=== PATIENT | female | born 1970 | race Caucasian/White ===

== ENCOUNTER 2018-01-03 17:30 | Emergency (ER) | payer OTHER ==
[~2018-01-03] VITALS: Ht 167.6 cm; Wt 127.5 kg
[~2018-01-03 17:30] MED LIST: CARDIZEM CD240 MG; CARDIZEM120 MG; FLAGYL500MG PO; LASIX20 MG
[2018-01-03] MEDS ORDERED: GLEEVEC400 MG (18:03)
[2018-01-03] MEDS ORDERED: LASIX20 MG (18:04)
[2018-01-03] MEDS ORDERED: VERAPAMIL ER240 MG (18:04)
== END 2018-01-04 00:45 | disposition home or self-care (01) ==
LOC: ER 17:30
DX: J45.998 Other asthma (principal)

== ENCOUNTER 2018-04-28 10:33 | Outpatient (CLI) | payer OTHER | END 2018-04-28 10:42 | disposition home or self-care (01) | LOC: MAMO-SONO 10:33 | DX: Z12.31 Encounter for screening mammogram for malignant neoplasm of breast (principal); N64.89 Other specified disorders of breast; E03.8 Other specified hypothyroidism; E06.3 Autoimmune thyroiditis; C92.10 Chronic myeloid leukemia, BCR/ABL-positive, not having achieved remission; I10 Essential (primary) hypertension; E66.01 Morbid (severe) obesity due to excess calories; K82.8 Other specified diseases of gallbladder ==

== ENCOUNTER → 2018-04-28 | Outpatient (CLI) | payer OTHER ==
[~2018-04-28] MED LIST changes: +GLEEVEC400 MG; +VERAPAMIL ER240 MG
== END | disposition home or self-care (01) ==
LOC: LAB 09:10
DX: C92.10 Chronic myeloid leukemia, BCR/ABL-positive, not having achieved remission (principal); I10 Essential (primary) hypertension; E66.01 Morbid (severe) obesity due to excess calories; K82.8 Other specified diseases of gallbladder; D50.8 Other iron deficiency anemias; D51.8 Other vitamin B12 deficiency anemias; K90.89 Other intestinal malabsorption; D51.1 Vitamin B12 deficiency anemia due to selective vitamin B12 malabsorption with proteinuria; D51.0 Vitamin B12 deficiency anemia due to intrinsic factor deficiency; R19.5 Other fecal abnormalities; E03.8 Other specified hypothyroidism; E06.3 Autoimmune thyroiditis; R97.0 Elevated carcinoembryonic antigen [CEA]

== ENCOUNTER → 2018-06-30 10:41 | Outpatient (CLI) | payer OTHER | END | disposition home or self-care (01) | LOC: LAB 10:41 | DX: N91.2 Amenorrhea, unspecified (principal); O92.6 Galactorrhea; N91.5 Oligomenorrhea, unspecified; N92.1 Excessive and frequent menstruation with irregular cycle; E55.9 Vitamin D deficiency, unspecified; E66.01 Morbid (severe) obesity due to excess calories ==

== ENCOUNTER 2018-11-25 19:58 | Emergency (ER) | payer OTHER ==
[~2018-11-25] VITALS: Ht 157.5 cm; Wt 99.8 kg
[2018-11-26] MEDS ORDERED: PHENERGAN25 MG PO (02:27)
[2018-11-26] MEDS ORDERED: BUTALB-ACETAMI1 EACH PO (02:27)
[2018-11-26] MEDS ORDERED: INTESTINEX680 M1 PO (02:27)
[2018-11-26] MEDS ORDERED: PEPCID AC20 MG PO (02:27)
== END 2018-11-26 02:54 | disposition home or self-care (01) ==
LOC: ER 19:58
DX: K29.70 Gastritis, unspecified, without bleeding (principal)

== ENCOUNTER 2019-01-09 12:54 | Outpatient (CLI) | payer OTHER ==
[~2019-01-09 12:54] MED LIST changes: +BUTALB-ACETAMI1 EACH PO; +INTESTINEX680 M1 PO; +PEPCID AC20 MG PO; +PHENERGAN25 MG PO
[2019-01-10] MEDS ORDERED: TUSSIONEX PENN115 ML PO (11:32)
== END 2019-01-09 13:08 | disposition home or self-care (01) ==
LOC: LAB 12:54
DX: J11.1 Influenza due to unidentified influenza virus with other respiratory manifestations (principal); J20.8 Acute bronchitis due to other specified organisms; C93.11 Chronic myelomonocytic leukemia, in remission

== ENCOUNTER 2019-01-10 09:53 | Emergency (ER) | payer OTHER ==
[~2019-01-10] VITALS: Ht 167.6 cm; Wt 127.9 kg
[2019-01-10] MEDS ORDERED: TUSSIONEX PENN115 ML PO (11:32)
== END 2019-01-10 11:42 | disposition home or self-care (01) ==
LOC: ER 09:53
DX: B96.0 Mycoplasma pneumoniae [M. pneumoniae] as the cause of diseases classified elsewhere (principal)

== ENCOUNTER 2019-01-14 18:43 | Inpatient (IN) | payer OTHER ==
[~2019-01-14] VITALS: Ht 167.6 cm; Wt 127.9 kg
[~2019-01-14 18:43] MED LIST changes: +TUSSIONEX PENN115 ML PO
--- NOTE | 2019-01-14 18:53 | NUR ---
PTE REFIERE QUE TIENE INFECCION DE ORINA DE VARIOS SOMMERS, PTE DESDE KARLEY SIENTE PRESION EN EL BAJO VIENTRE. PTE CON DX DE LEUCEMIA.
--- NOTE | 2019-01-14 21:59 | NUR ---
PTE EVALUADO POR EL DR EBER LEIVAIEN [place]. MS K THOMASON ORIENTA SOBRE EL MISMO, LO CUAL REFIERE ENTENDER, REALIZA PRUEBAS DE LABORATORIO Y ADMINISTRA MEDICAMENTO MARCIAL ORDEN MEDICA Y SIGUIENDO MEDIDAS ASEPTICAS.
--- NOTE | 2019-01-14 23:42 | NUR ---
PT ALERTA Y ORIENTADA X3 ESFERAS EN COMPANIA DE FAMILIAR. SE RECIBE EN CAMA CON BARANDAS ELEVADAS Y FRENOS COLOCADOS. HEPARIN LOCK E IVLFUIDS PATENTES. AISLADA POR PRECAUCION EN CUBICULO 14. PT [place]. SE MANTIENE BAJO OBSERVACION POR CAMBIOS EN IFRAH, TRANQUILA Y SIN DIFICULTAD RESPIRATORIA.
[2019-01-18] MEDS ORDERED: BUDESONIDE1 MG/2 ML IH (15:37)
[2019-01-18] MEDS ORDERED: LEVALBUTER1.25 MG/3 IH (15:38)
[2019-01-18] MEDS ORDERED: MOXIFLOXACIN H400 MG PO (15:38)
[2019-01-18] MEDS ORDERED: ONDANSETRON HCL8 MG PO (15:39)
[2019-01-18] MEDS ORDERED: TUSNEL CAPLET1 EACH PO (15:39)
[2019-01-21] MEDS ORDERED: MOXIFLOXACIN H400 MG PO (13:50)
== END 2019-01-21 17:52 | disposition home or self-care (01) | DRG 660 ==
LOC: ER 18:43 → SURH 01-15 07:31 → MEDI 01-15 07:31
PROVIDERS: Urology; ADMIT Student in an Organized Health Care Education/Training Program
PROC: 3E0F7GC Introduction of Other Therapeutic Substance into Respiratory Tract, Via Natural or Artificial Opening (ICD-10-PCS; 2019-01-16)
PROC: 0TC78ZZ Extirpation of Matter from Left Ureter, Via Natural or Artificial Opening Endoscopic (ICD-10-PCS; 2019-01-17)
PROC: 0T778DZ Dilation of Left Ureter with Intraluminal Device, Via Natural or Artificial Opening Endoscopic (ICD-10-PCS; 2019-01-17)
PROC: BT1FZZZ Fluoroscopy of Left Kidney, Ureter and Bladder (ICD-10-PCS; 2019-01-17)
PROC: 02HV33Z Insertion of Infusion Device into Superior Vena Cava, Percutaneous Approach (ICD-10-PCS; 2019-01-17)
PROC: 0TC18ZZ Extirpation of Matter from Left Kidney, Via Natural or Artificial Opening Endoscopic (ICD-10-PCS; principal; 2019-01-17 18:30)
DX: N20.0 Calculus of kidney (principal); N39.0 Urinary tract infection, site not specified; C92.11 Chronic myeloid leukemia, BCR/ABL-positive, in remission; N20.1 Calculus of ureter; N76.0 Acute vaginitis; I10 Essential (primary) hypertension; E66.01 Morbid (severe) obesity due to excess calories; J45.998 Other asthma

== ENCOUNTER → 2019-01-22 11:00 | Outpatient (CLI) | payer OTHER ==
[~2019-01-22 11:00] MED LIST changes: +BUDESONIDE1 MG/2 ML IH; +LEVALBUTER1.25 MG/3 IH; +MOXIFLOXACIN H400 MG PO; +ONDANSETRON HCL8 MG PO; +TUSNEL CAPLET1 EACH PO
== END | disposition home or self-care (01) ==
LOC: LAB 11:00
DX: N20.0 Calculus of kidney (principal); N30.00 Acute cystitis without hematuria

== ENCOUNTER 2019-08-09 16:57 | Emergency (ER) | payer OTHER ==
[~2019-08-09] VITALS: Ht 167.6 cm; Wt 129.3 kg
== END 2019-08-09 18:15 | disposition home or self-care (01) ==
LOC: ER 16:57
DX: S60.222A Contusion of left hand, initial encounter (principal); W22.8XXA Striking against or struck by other objects, initial encounter; Y93.89 Activity, other specified; Y92.89 Other specified places as the place of occurrence of the external cause; Y99.8 Other external cause status

== ENCOUNTER 2022-10-07 10:29 | Emergency (ER) | payer OTHER ==
[~2022-10-07] VITALS: Ht 167.6 cm; Wt 129.3 kg
[2022-10-07] MEDS ORDERED: INTEGRA PLUS C1 EACH PO (10:45)
[2022-10-07] MEDS ORDERED: VITAMIN B-12500 MC3 SL (10:46)
[2022-10-07] MEDS ORDERED: ALIGN4 MG PO (10:47)
[2022-10-07] MEDS ORDERED: CARAFATE1 GM/10 ML PO (10:47)
== END 2022-10-07 15:33 | disposition home or self-care (01) ==
LOC: ER 10:29
DX: M25.571 Pain in right ankle and joints of right foot (principal); Z88.0 Allergy status to penicillin; Z88.2 Allergy status to sulfonamides; Z85.6 Personal history of leukemia

== ENCOUNTER 2022-10-08 07:51 | Outpatient (CLI) | payer OTHER ==
[~2022-10-08 07:51] MED LIST changes: +ALIGN4 MG PO; +CARAFATE1 GM/10 ML PO; +INTEGRA PLUS C1 EACH PO; +VITAMIN B-12500 MC3 SL
== END 2022-10-08 07:54 | disposition home or self-care (01) ==
LOC: NUCLEAR 07:51
PROVIDERS: ATTEND Emergency Medicine
DX: I80.209 Phlebitis and thrombophlebitis of unspecified deep vessels of unspecified lower extremity (principal)

== ENCOUNTER 2022-12-09 14:55 | Outpatient (CLI) | payer OTHER | END 2022-12-09 15:04 | disposition home or self-care (01) | LOC: RAD 14:55 | PROVIDERS: ATTEND Internal Medicine Hematology & Oncology | DX: J45.998 Other asthma (principal) ==

== ENCOUNTER 2022-12-11 09:27 | Emergency (ER) | payer OTHER ==
[~2022-12-11] VITALS: Ht 167.6 cm; Wt 129.3 kg
[2022-12-11] MEDS ORDERED: VERAPAMIL ER240 MG PO (10:02)
[2022-12-11] MEDS ORDERED: GLEEVEC400 MG PO (10:02)
[2022-12-11] MEDS ORDERED: LASIX20 MG PO (10:02)
== END 2022-12-11 18:58 | disposition home or self-care (01) ==
LOC: ER 09:27
DX: J40 Bronchitis, not specified as acute or chronic (principal); R06.02 Shortness of breath; Z20.822 Contact with and (suspected) exposure to COVID-19; I10 Essential (primary) hypertension; R91.1 Solitary pulmonary nodule; Z88.8 Allergy status to other drugs, medicaments and biological substances; Z91.018 Allergy to other foods

== ENCOUNTER 2024-05-24 11:49 | Emergency (ER) | payer OTHER ==
[~2024-05-24] VITALS: Ht 167.6 cm; Wt 129.3 kg
[~2024-05-24 11:49] MED LIST changes: +GLEEVEC400 MG PO; +LASIX20 MG PO; +VERAPAMIL ER240 MG PO
[2024-05-24] MEDS ORDERED: KETOROLAC TROMETHAMINE 30 MG VIAL IM STA (14:10)
[2024-05-24 15:42] LABS: HEMOGLOBIN 12.8 g/dL (12.0-15.00); MEAN CELL VOLUME 97.5 fL (80.00-100.00); MEAN CORPUSCULAR HEMOGLOBIN 33.6 pg (27.00-32.0); MEAN CORPUSCULAR HGB CONC 34.5 g/dl (32.0-36.0); PLATELET COUNT 272 K/uL (150-450)
[2024-05-24 16:06] LABS: INR 0.94; PARTIAL THROMBOPLASTIN TIME 27.1 SECONDS (22.0-34.0); PROTHROMBIN TIME 10.3 SECONDS (9.0-11.5)
[2024-05-24 16:11] LABS: CREATININE SERUM 1.31 mg/dL (0.55-1.02); GFR 42.63; POTASSIUM 4.22 mEq/L (3.5-5.1)
[2024-05-24] MEDS ORDERED: BACTRIM DS TAB1 EACH PO (17:00)
[2024-05-24 17:57] VITALS: BP 130/86; O2SAT 95
== END 2024-05-24 17:58 | disposition home or self-care (01) ==
LOC: ER 11:51
PROVIDERS: General Practice
DX: L03.116 Cellulitis of left lower limb (principal); M79.89 Other specified soft tissue disorders; M79.605 Pain in left leg; I10 Essential (primary) hypertension; Z88.8 Allergy status to other drugs, medicaments and biological substances; Z91.018 Allergy to other foods

== ENCOUNTER 2024-12-10 06:29 | Emergency (ER) | payer OTHER ==
[~2024-12-10] VITALS: Ht 167.6 cm; Wt 129.3 kg
[~2024-12-10 06:29] MED LIST changes: +BACTRIM DS TAB1 EACH PO
[2024-12-10] MEDS ORDERED: PANTOPRAZOLE SO40 MG PO (07:17)
[2024-12-10] MEDS ORDERED: IRBESARTAN75 MG PO (07:17)
[2024-12-10] MEDS ORDERED: ALBUTEROL2.5 MG/3 M IH (07:17)
[2024-12-10] MEDS ORDERED: IPRATROPIUM BROMIDE 0.5 MG/2.5 ML AMPUL.NEB IH SCH (08:45)
[2024-12-10] MEDS ORDERED: FAMOtidine 10 MG/ML (4ML VIAL) IV ONE (08:45)
[2024-12-10] MEDS ORDERED: CEFTRIAXONE SODIUM 1,000 MG VIAL IV ONE (08:45)
[2024-12-10] MEDS ORDERED: MAGNESIUM SULFATE IN WATER 2 GM/50 ML PIGGYBAG IV ONE (08:45)
[2024-12-10] MEDS ORDERED: METHYLPREDNISOLONE SOD SUCC 125 MG VIAL IV ONE (08:45)
[2024-12-10] MEDS ORDERED: LEVALBUTEROL HCL 1.25 MG/3 ML SOLUTION IH SCH (08:45)
[2024-12-10] MEDS ORDERED: MAGNESIUM SULFATE 50% 1,000 MG/2 ML VIAL ONE (09:04)
[2024-12-10] MEDS ORDERED: METHYLPREDNISOLONE SOD SUCC 125 MG VIAL ONE (09:05)
[2024-12-10] MEDS ORDERED: CEFTRIAXONE SODIUM 1,000 MG VIAL ONE (09:05)
[2024-12-10] MEDS ORDERED: FAMOTIDINE/PF 20 MG/2 ML VIAL ONE (09:06)
[2024-12-10 09:33] LABS: BASO % 0.5 % (0.1-1.2); EOS # 0.19 (0.04-0.54); EOS % 1.4 % (0.7-7.0); HEMATOCRIT 35.7 % (34.1-44.9); HEMOGLOBIN 12.4 g/dL (11.2-15.7); LYMPH # 3.55 (1.18-3.74); LYMPH % 26.4 % (19.3-53.1); MEAN CORPUSCULAR HEMOGLOBIN 33.4 pg (25.6-32.2); MONO % 7.4 % (4.7-12.5); NEUT # 8.58 (1.56-6.13); NEUT % 63.9 % (34.0-71.1); PLATELET COUNT 285 K/uL (163-369); RED BLOOD COUNT 3.71 M/uL (3.93-5.22); RED CELL DISTRIBUTION WIDTH 13.7 % (11.6-14.4)
[2024-12-10] MEDS ORDERED: IPRATROPIUM BROMIDE 0.5 MG/2.5 ML AMPUL.NEB IH ONE (09:45)
[2024-12-10] MEDS ORDERED: LEVALBUTEROL HCL 0.63 MG/3 ML SOLUTION IH ONE (09:46)
[2024-12-10 09:59] LABS: ABG PH 7.369 (7.35-7.45); ABG PO2 93.2 mmHg (80-100); ABG pCO2 46.3 mmHg (35-45); BASE EXCESS 0.3 mmol/l; BICARBONATE 26.1 mmol/l (23-25); SaO2 96.9 %; Tco2 27.5 mmol/l
[2024-12-10 10:03] LABS: ALBUMIN 3.4 gm/dL (3.4-5.0); BILIRUBIN TOTAL 0.4 mg/dL (0.3-1.2); CALCIUM 8.8 mg/dL (8.5-10.1); CREATININE SERUM 1.12 mg/dL (0.55-1.02); GFR 50.89; GLOBULINA 3.3 G/DL (2.4-3.5); POTASSIUM 3.28 mEq/L (3.5-5.1); TOTAL PROTEIN 6.7 gm/dL (6.4-8.2)
[2024-12-10 10:26] LABS: o2 21 %
[2024-12-10 10:27] LABS: allen test SATISFACTORY; mode ROOM AIR; puncture site RADIAL RIGHT
[2024-12-10 10:36] LABS: URINE APPEARANCE Clear; URINE BILIRRUBIN Negative (NEGATIVE); URINE BLOOD Small; URINE COLOR Dark Yellow; URINE GLUCOSE Negative (NEGATIVE); URINE KETONE Negative (NEGATIVE); URINE LEUKOCYTE Small; URINE NITRATE Negative; URINE PROTEIN Trace (NEGATIVE); URINE UROBILINOGEN 0.2 E.U./dl
[2024-12-10 10:41] LABS: COVID-19 AG NEGATIVE (NEGATIVE); INFLUENZA A AG NEGATIVE (NEGATIVE)
[2024-12-10 10:44] LABS: URINE EPITHELIAL CELLS 21.6 uL (0.0-38.8); URINE RBC 135.2 uL (0.0-20.8)
[2024-12-10 11:16] LABS: URINE CAST 0.14 uL (0.0-1.40)
[2024-12-10 11:17] LABS: URINE YEAST FEW /hpf
[2024-12-10] MEDS ORDERED: SINGULAIR10 MG PO (11:27)
[2024-12-10] MEDS ORDERED: PROTONIX40 MG PO (11:27)
[2024-12-10] MEDS ORDERED: IPRAT-ALBUT 0.5-3 ML IH (11:27)
[2024-12-10] MEDS ORDERED: LEVALBUTER0.63 MG/3 IH (11:27)
[2024-12-10] MEDS ORDERED: BACTRIM DS TAB1 EACH PO (11:27)
[2024-12-10] MEDS ORDERED: MEDROLPACK PO (11:27)
== END 2024-12-10 11:36 | disposition home or self-care (01) ==
LOC: ER 06:29
PROVIDERS: General Practice
DX: R06.02 Shortness of breath (principal); J40 Bronchitis, not specified as acute or chronic; Z20.822 Contact with and (suspected) exposure to COVID-19; I10 Essential (primary) hypertension; Z88.8 Allergy status to other drugs, medicaments and biological substances; Z91.018 Allergy to other foods

== ENCOUNTER 2024-12-11 07:42 | Outpatient (CLI) | payer OTHER ==
[~2024-12-11 07:42] MED LIST changes: +ALBUTEROL2.5 MG/3 M IH; +IPRAT-ALBUT 0.5-3 ML IH; +IRBESARTAN75 MG PO; +LEVALBUTER0.63 MG/3 IH; +MEDROLPACK PO; +PANTOPRAZOLE SO40 MG PO; +PROTONIX40 MG PO; +SINGULAIR10 MG PO
== END 2024-12-11 07:52 | disposition home or self-care (01) ==
LOC: RAD 07:42
PROVIDERS: ATTEND Internal Medicine Hematology & Oncology
DX: C92.10 Chronic myeloid leukemia, BCR/ABL-positive, not having achieved remission (principal); D50.8 Other iron deficiency anemias; I10 Essential (primary) hypertension; E66.01 Morbid (severe) obesity due to excess calories; K82.9 Disease of gallbladder, unspecified; K90.89 Other intestinal malabsorption; E04.2 Nontoxic multinodular goiter; E83.52 Hypercalcemia; N20.0 Calculus of kidney; I80.221 Phlebitis and thrombophlebitis of right popliteal vein

== ENCOUNTER → 2024-12-11 09:02 | Outpatient (CLI) | payer OTHER ==
[2024-12-11 09:49] LABS: URINE APPEARANCE Clear; URINE BILIRRUBIN Negative (NEGATIVE); URINE BLOOD Moderate; URINE COLOR Yellow; URINE KETONE Trace (NEGATIVE); URINE LEUKOCYTE Negative; URINE NITRATE Negative; URINE PROTEIN 30 (NEGATIVE); URINE UROBILINOGEN 0.2 E.U./dl
[2024-12-11 09:53] LABS: URINE RBC 322.1 uL (0.0-20.8)
[2024-12-11 10:13] LABS: URINE CAST 0.14 uL (0.0-1.40); URINE GLUCOSE 500 MG/DL (NEGATIVE)
[2024-12-11 10:17] LABS: CREATININE URINE RANDOM 78.8 MG/DL (30-125)
== END | disposition home or self-care (01) ==
LOC: LAB 09:02
PROVIDERS: ATTEND Internal Medicine Hematology & Oncology
DX: C92.10 Chronic myeloid leukemia, BCR/ABL-positive, not having achieved remission (principal); D50.8 Other iron deficiency anemias; I10 Essential (primary) hypertension; E66.01 Morbid (severe) obesity due to excess calories; K82.9 Disease of gallbladder, unspecified; E55.9 Vitamin D deficiency, unspecified; K90.89 Other intestinal malabsorption; E04.2 Nontoxic multinodular goiter; E83.52 Hypercalcemia; N20.0 Calculus of kidney; I80.221 Phlebitis and thrombophlebitis of right popliteal vein

== ENCOUNTER 2025-02-08 10:13 | Day surgery (SDC) | payer OTHER ==
[2025-02-07 10:28] LABS: URINE APPEARANCE Clear; URINE BILIRRUBIN Negative (NEGATIVE); URINE BLOOD Small; URINE COLOR Yellow; URINE GLUCOSE Negative (NEGATIVE); URINE KETONE Negative (NEGATIVE); URINE LEUKOCYTE Small; URINE NITRATE Negative; URINE PROTEIN 30 (NEGATIVE); URINE UROBILINOGEN 1.0 E.U./dl
[2025-02-07 10:33] LABS: URINE BACTERIA 91.1 uL (0.0-1933); URINE EPITHELIAL CELLS 17.8 uL (0.0-38.8); URINE RBC 119.3 uL (0.0-20.8); URINE WBC 105.6 uL (0.0-23.2)
[2025-02-07 10:33] LABS: BASO % 0.5 % (0.1-1.2); EOS # 0.27 (0.04-0.54); EOS % 2.1 % (0.7-7.0); LYMPH # 3.77 (1.18-3.74); LYMPH % 29.3 % (19.3-53.1); MEAN PLATELET VOLUME 10.20 fl (9.4-12.4); MONO # 0.91 (0.24-0.82); MONO % 7.1 % (4.7-12.5); NEUT # 7.80 (1.56-6.13); NEUT % 60.6 % (34.0-71.1); RED CELL DISTRIBUTION WIDTH 13.5 % (11.6-14.4)
[2025-02-07 10:44] LABS: URINE CAST 0.58 uL (0.0-1.40)
[2025-02-07 10:54] LABS: INR 0.96
[2025-02-07 10:56] VITALS: BP 124/83
[2025-02-07 11:06] LABS: COVID-19 AG NEGATIVE (NEGATIVE)
[2025-02-07 11:15] LABS: BUN CREA RATIO 11.0 (7.0-25.0); CREATININE SERUM 1.32 mg/dL (0.55-1.02); GFR 42.1; GLUCOSE FASTING 105.0 mg/dL (65-100); OSMOLALITY SERUM 286.0 MOSM/KG (275-295)
[~2025-02-08] VITALS: Ht 167.6 cm; Wt 129.3 kg
[~2025-02-08 10:13] MED LIST changes: +FUSION PLUS CA1 EACH PO; +PROAIR RESPICL90 MCG
[2025-02-08] MEDS ORDERED: GENTAMICIN SULFATE 10 MG/ML (Pediatrico) IV ONE (13:00)
[2025-02-08] MEDS ORDERED: IOVERSOL 320 MG/ML - 100 ML VIAL IV ONE (13:15)
[2025-02-08] MEDS ORDERED: CHLORHEXIDINE GLUCONATE 120 ML BOTTLE TOP ONE (13:15)
[2025-02-08] MEDS ORDERED: PHENAZOPYRIDINE HCL 100 MG TABLET PO ONE (13:30)
[2025-02-08 15:07] VITALS: BP 123/67; O2SAT 100
== END 2025-02-08 14:50 | disposition home or self-care (01) ==
LOC: CIR.AMB 10:13
PROVIDERS: ATTEND Urology
DX: N20.1 Calculus of ureter (principal); Z88.8 Allergy status to other drugs, medicaments and biological substances

== ENCOUNTER 2025-02-27 10:11 | Day surgery (SDC) | payer OTHER ==
[2025-02-26 08:55] LABS: BASO % 0.6 % (0.1-1.2); EOS # 0.43 (0.04-0.54); EOS % 3.5 % (0.7-7.0); LYMPH # 2.81 (1.18-3.74); LYMPH % 22.9 % (19.3-53.1); MEAN PLATELET VOLUME 10.00 fl (9.4-12.4); MONO # 0.86 (0.24-0.82); MONO % 7.0 % (4.7-12.5); NEUT # 8.06 (1.56-6.13); NEUT % 65.7 % (34.0-71.1); RED CELL DISTRIBUTION WIDTH 12.8 % (11.6-14.4)
[2025-02-26 09:02] VITALS: BP 120/74
[2025-02-26 09:10] LABS: COVID-19 AG NEGATIVE (NEGATIVE)
[2025-02-26 09:25] LABS: INR 0.96
[2025-02-26 09:39] LABS: BUN CREA RATIO 13.0 (7.0-25.0); CREATININE SERUM 1.13 mg/dL (0.55-1.02); GFR 50.37; GLUCOSE FASTING 107.0 mg/dL (65-100); OSMOLALITY SERUM 284.0 MOSM/KG (275-295)
[2025-02-26 09:59] LABS: URINE APPEARANCE Cloudy; URINE BILIRRUBIN Small (NEGATIVE); URINE BLOOD Large; URINE COLOR Orange; URINE GLUCOSE Negative (NEGATIVE); URINE KETONE Negative (NEGATIVE); URINE LEUKOCYTE Moderate; URINE NITRATE Positive; URINE UROBILINOGEN 1.0 E.U./dl
[2025-02-26 10:00] LABS: URINE BACTERIA 206.4 uL (0.0-1933); URINE EPITHELIAL CELLS 51.5 uL (0.0-38.8); URINE RBC 2429.5 uL (0.0-20.8); URINE WBC 100.6 uL (0.0-23.2)
[2025-02-26 10:47] LABS: URINE CAST 0.29 uL (0.0-1.40); URINE PROTEIN 100 (NEGATIVE)
[~2025-02-27] VITALS: Ht 167.6 cm; Wt 129.3 kg
[2025-02-27] MEDS ORDERED: PHENAZOPYRIDINE HCL 100 MG TABLET PO ONE (13:45)
[2025-02-27] MEDS ORDERED: GENTAMICIN SULFATE 40 MG/ML VIAL IV ONE (14:00)
[2025-02-27] MEDS ORDERED: CHLORHEXIDINE GLUCONATE 120 ML BOTTLE TOP ONE (14:00)
== END 2025-02-27 15:50 | disposition home or self-care (01) ==
LOC: CIR.AMB 10:11
PROVIDERS: ATTEND Urology
DX: N20.1 Calculus of ureter (principal)

== ENCOUNTER 2025-03-13 08:41 | Outpatient (CLI) | payer OTHER | END 2025-03-13 08:42 | disposition home or self-care (01) | LOC: RAD 08:41 | PROVIDERS: ATTEND Urology | DX: N20.0 Calculus of kidney (principal) ==